=== PATIENT | male | born 1960 | race Two or more races ===

== ENCOUNTER 2024-04-05 01:11 | Emergency (ER) | payer BC, SELFPAY ==
[2024-04-05 01:12] VITALS: BMI 29.0
--- NOTE | 2024-04-05 01:16 | PD.EDCHEST ---
ED Chest Pain RME/HPI General Chief Complaint: Chest Pain Stated Complaint: CHEST TIGHTNESS; SOB SINCE 11PM Time Seen by Provider: 04/05/24 01:15 Arrival date/time: 04/05/24 01:11 RME / HPI RME / HPI narrative: This section includes all my notes and documentations, including HPI, PE, and ED course. Sonu Vallejo MD HPI: 63-year-old male here with upper abdominal pain radiating into the chest. Started yesterday but severe in the past few hours. He describes burning pain. Has nausea, no vomiting. No fever or chills. Does not take any regular medications. Drinks beers almost daily. No other complaints. ROS: All negative except as documented in HPI. Physical Exam: General: Alert and oriented. Appears uncomfortable. Eyes: Conjunctivae and lids clear. ENT: No nasal congestion. Neck: Supple. Heart: RRR. Lungs: No respiratory distress. Good air movement. No rhonchi, wheezing, rales. Abdomen: Soft with epigastric tenderness. Skin: Warm and dry. Neuro: Alert and oriented X 3. I reviewed all diagnostic test results. My interpretation of the EKG is sinus rhythm with no acute ST?T changes. My interpretation of the chest x-ray is no acute findings, official radiology report is pending. My review of the chest CT report is no PE. My review of the abdominal CT report is no acute findings. Blood tests unremarkable, including negative troponin. At this point, diagnoses include gastritis. Treatment here included Zofran and famotidine and Protonix. Significant improvement noted. Prescribed famotidine and Protonix and recommended more outpatient cardiac and GI workup. Based on my best medical judgment, made decision no further evaluation or treatment indicated at this time. Patient understands and agrees to the discharge instructions customized and printed, see below. Discharge instructions from Dr. Vallejo: ?After extensive evaluation, there is no immediately life-threatening condition. Such as heart attack or pulmonary embolism (blood clots in the lungs). --Your symptoms are due to stomach ulcer (see attached handout). There is no emergency such as appendicitis needing emergent surgery. ?To help heal the ulcer, take Omeprazole 40 mg every morning and Famotidine 40 mg at bedtime for a month. ?Zofran for nausea/vomiting. Clear liquid diet for 24 hours. Then slowly advance diet as tolerated. ?Avoid food and beverages that can trigger and worsen ulcers, such as alcohol. See attached handout. -Senokot S and MOM for constipation. ?See a private doctor on 04/06/2024. Ask to review all test results and official radiology reports, to make sure you receive all necessary follow-ups and monitoring. To make sure there is no serious underlying abdominal condition, ask to help you get more care not available here in the ER. Such as EGD or scoping the stomach, colonoscopy or scoping the colon, and a referral to see a application technical designer. To make sure there is no serious underlying heart condition, ask to help you get more tests for your heart that cannot be done here in the ER. Such as Holter Monitor (cardiac monitoring at home from a day to even a month), heart stress test (on treadmill or with medication), echocardiogram (imaging of your heart structures), heart catherization (checking for blockages in your heart arteries), and a referral to see a Poultry Husbandry Worker. ?Seek immediate medical care with worsening or with any concerns. Sonu Vallejo MD Related Data Home Medications ?Medication ?Instructions ?Recorded ?Confirmed montelukast 10 mg tablet 10 mg PO QDAY 03/22/20 03/22/20 omeprazole 40 mg capsule,delayed 40 mg PO QDAY 03/22/20 03/22/20 release pseudoephedrine HCl 60 mg tablet 60 mg PO Q6H PRN Allergic Reaction 03/22/20 03/22/20 (Sudogest) Previous Rx's ?Medication ?Instructions ?Recorded cephalexin 500 mg capsule (Keflex) 500 mg PO BID #14 caps 03/23/20 hydrocodone 5 mg-acetaminophen 325 1 tab PO Q4H PRN pain #30 tabs 03/23/20 mg tablet famotidine 40 mg tablet 40 mg PO QDAY #30 tabs 04/05/24 magnesium hydroxide 2,400 mg/10 mL 30 ml PO QDAY PRN constipation #60 04/05/24 oral suspension (Milk Of Magnesia mL Concentrated) omeprazole 40 mg capsule,delayed 40 mg PO QDAY #30 caps 04/05/24 release ondansetron 4 mg disintegrating 4 mg PO TID PRN nausea and 04/05/24 tablet vomiting 5 days #10 tabs sennosides 8.6 mg-docusate sodium 4 tab-cap (4 x 8.6-50 mg) PO 04/05/24 50 mg tablet (Senokot-S) .bedtime PRN constipation #20 tabs Allergies Allergy/AdvReac Type Severity Reaction Status Date / Time No Known Allergies Allergy Verified 04/05/24 01:16 Review of Systems Review of Systems Systems Reviewed: All systems reviewed, normal except as documented Past Medical History Past Medical History NEUROLOGIC: Negative Neurological Disorders or Seizures CARDIAC: Negative Cardiac Disorders, Congestive Heart Failure, Edema, Cellulitis or Varicose Veins RESPIRATORY: Negative Chronic Obstructive Pulmonary Disease (COPD), Pneumonia, Tuberculosis or Sleep Apnea GASTROINTESTINAL: Negative Gastrointestinal Disorders or Hepatitis GENITOURINARY: Negative Genitourinary Disorders or Renal Disease MUSCULOSKELETAL: Positive Musculoskeletal Disorders, Arthritis and Fractures (LEFT ANKLE HAS METAL) ENT: Positive Cataracts (THALIA) ENDOCRINE: Negative Endocrine Disorders, Diabetes Mellitus Type 1 or Diabetes Mellitus Type 2 HEMATOLOGIC: Negative Blood Disorders OTHER HISTORY: Negative Hospitalization, Autoimmune Disease, Shingles, Falls, Blood Transfusions, Blood Transfusion Reaction, Anesthesia Reactions, Chemotherapy, Radiation Therapy, MRSA, Chicken Pox, Measles, Mumps or Cancer Family History FAMILY HISTORY: Positive Family Gastrointestinal Problems (FATHER (ABD)), Family Cancer (FATHER (ABD CA)) and Family Surgery (FATHER,MOTHER); Negative Family Psychiatric Problems, Family Respiratory Disorders, Family Cardiac Disorders or Family Anesthesia Reaction Surgical History SURGICAL: Positive Nose Surgery (SEPTOPLASTY/TRUBINECTOMY), Tonsillectomy and Open Reduction Internal Fixation (LEFT ANKLE-PLATES/SCREWS); Negative Cardiac Surgery or Pacemaker Social History SMOKING STATUS: Current some day smoker SUBSTANCE USE: does not use ED Exam Narrative Physical exam: As noted in HPI. Course Course Course Narrative: CXR is ordered for determining the etiology of chest pain. Quality Measures none Orders Category Date Time Status CT Screening NOW Care 04/05/24 01:37 Active EKG (ED ONLY) *Do not use* NOW Care 04/05/24 01:37 Completed Saline [Insert IV] NOW Care 04/05/24 01:[address] abdomen pelvis w con Stat Exams 04/05/24 01:[address] angio chest Stat Exams 04/05/24 01:38 Taken EKG (ED Only) Stat Exams 04/05/24 01:37 Ordered XR chest 1V portable Stat Exams 04/05/24 01:37 Taken Amylase Stat Lab 04/05/24 02:10 Completed BNP [B-Type Natriuretic Peptide] Stat Lab 04/05/24 02:10 Completed CBC Stat Lab 04/05/24 02:10 Completed CMP [Comprehensive Metabolic Panel] Stat Lab 04/05/24 02:10 Completed D-Dimer Stat Lab 04/05/24 02:10 Completed Lipase Stat Lab 04/05/24 02:10 Completed Magnesium Stat Lab 04/05/24 02:10 Completed Troponin I Stat Lab 04/05/24 02:10 Completed Famotidine Inj [Pepcid Inj] Med 04/05/24 01:37 Discontinued 20 mg IVP X1 ONE Ondansetron Inj [Zofran Inj] Med 04/05/24 01:37 Discontinued 4 mg IV X1 ONE Pantoprazole Inj [Protonix Inj] Med 04/05/24 01:37 Discontinued 40 mg IV X1 ONE Vital Signs Vital signs: Vital Signs Temperature 98.1 F 04/05/24 01:39 Pulse Rate 64 04/05/24 01:39 Respiratory Rate 24 H 04/05/24 01:39 Blood Pressure 155/76 H 04/05/24 01:39 Pulse Oximetry (%) 96 04/05/24 01:39 Oxygen Delivery Method Room Air 04/05/24 01:39 Chest Pain Patient data External records reviewed:: [facility] previous records (Per chart review, patient was seen here on 08/30/22 for near syncope.) Clinical information provided by:: patient Social determinants that could affect healthcare access:: none Patient has the following chronic illnesses:: none How is presenting disease/condition affected by chronic disease/condition?: no chronic disease Evaluation data The following diagnostics were reviewed and interpreted by me:: lab results, radiology exam(s) and EKG tracing(s) (My interpretation of the EKG is: Sinus rhythm (64 bpm) with nonspecific ST-T changes. Sonu Vallejo MD) Lab and/or radiology exams considered but not ordered:: none Interpretation Summary: Gastritis Medications / Prescriptions Medications or Prescriptions considered but not ordered:: none Medication administrations:: Medication Administration History Discontinued Medications Famotidine (Famotidine Inj 10 Mg/Ml Vial 2 Ml) 20 mg IVP X1 ONE Stop: 04/05/24 01:38 Last Admin: 04/05/24 02:10 Dose: 20 mg Documented By: VIRAL Ondansetron HCl (Ondansetron Inj 2 Mg/Ml Inj 2 Ml) 4 mg IV X1 ONE; Protocol Stop: 04/05/24 01:38 Last Admin: 04/05/24 02:10 Dose: 4 mg Documented By: VIRAL Pantoprazole Sodium (Pantoprazole Inj 40 Mg Vial) 40 mg IV X1 ONE Stop: 04/05/24 01:38 Last Admin: 04/05/24 02:10 Dose: 40 mg Documented By: VIRAL Zofran and famotidine and Protonix Consultations Consultation(s) initiated? (list below): No Diagnosis Chest Pain Differential Diagnosis: pneumothorax, stable angina, unstable angina pectoris, atypical chest pain, st elevation myocardial infarction, costochondritis, biliary colic and other (PE, SBO, PUD, gastritis, GERD) Most likely diagnosis given after review of the tests above:: Gastritis Admission Indicated Admission indicated?: not indicated Explain why admission is indicated or not indicated:: Admission criteria not Admission Request Was there a request for admission?: No Disposition Plan Disposition Plan: Discharge Discharge Attestation Discharge Attestation: The patient and all family members were given an opportunity to ask questions and understood the discharge instructions. Discharge instructions specifically effects, indications for sooner follow up or return to the emergency department, and the expected course of current diagnosis. Patient condition: Stable Discharge Plan Plan Patient Disposition: HOME (Self Care) Prescriptions/Referrals Prescriptions/Med Rec: New famotidine 40 mg tablet 40 mg PO QDAY Qty: 30 0RF omeprazole 40 mg capsule,delayed release(DR/EC) 40 mg PO QDAY Qty: 30 0RF ondansetron 4 mg tablet,disintegrating 4 mg PO TID PRN (Reason: nausea and vomiting) 5 Days Qty: 10 0RF sennosides-docusate sodium [Senokot-S] 8.6-50 mg tablet 4 tab-cap PO .bedtime PRN (Reason: constipation) Qty: 20 0RF magnesium hydroxide [Milk Of Magnesia Concentrated] 2,400 mg/10 mL suspension 30 ml PO QDAY PRN (Reason: constipation) Qty: 60 0RF No Action omeprazole 40 mg Capsule,Delayed Release(Dr/Ec) 40 mg PO QDAY montelukast 10 mg Tablet 10 mg PO QDAY pseudoephedrine HCl [Sudogest] 60 mg Tablet 60 mg PO Q6H PRN (Reason: Allergic Reaction) cephalexin [Keflex] 500 mg capsule 500 mg PO BID Qty: 14 0RF hydrocodone-acetaminophen 5-325 mg tablet 1 tab PO Q4H MDD 6 PRN (Reason: pain) Qty: 30 0RF Referrals: Kingston Salvador MD [Primary Care Provider] - In 1 week Problem List Clinical Impression: Stomach ulcer Patient/Caregiver Discharge Instructions Discharge Activity: activity as tolerated Education Materials: ED Constipation (Adult), ED PEPTIC ULCER vs GASTRITIS Additional Instructions: Discharge instructions from Dr. Vallejo: ?After extensive evaluation, there is no immediately life-threatening condition. Such as heart attack or pulmonary embolism (blood clots in the lungs). --Your symptoms are due to stomach ulcer (see attached handout).? There is no emergency such as appendicitis needing emergent surgery. ?To help heal the ulcer, take Omeprazole 40 mg every morning and Famotidine 40 mg at bedtime for a month. ?Zofran for nausea/vomiting.? Clear liquid diet for 24 hours.? Then slowly advance diet as tolerated. ?Avoid food and beverages that can trigger and worsen ulcers, such as alcohol.? See attached handout. --Senokot S and milk of magnesia as needed for constipation. ?See a private doctor on 04/06/2024. Ask to review all test results and official radiology reports, to make sure you receive all necessary follow-ups and monitoring. To make sure there is no serious underlying abdominal condition, ask to help you get more care not available here in the ER.? Such as EGD or scoping the stomach, colonoscopy or scoping the colon, and a referral to see a application technical designer. To make sure there is no serious underlying heart condition, ask to help you get more tests for your heart that cannot be done here in the ER. Such as Holter Monitor (cardiac monitoring at home from a day to even a month), heart stress test (on treadmill or with medication), echocardiogram (imaging of your heart structures), heart catherization (checking for blockages in your heart arteries), and a referral to see a Poultry Husbandry Worker. ?Seek immediate medical care with worsening or with any concerns. Print Language: Kazakh Stand Alone Forms: [employer]addy Award Info., Patient Portal Info Letter
--- NOTE | 2024-04-05 01:37 | XR_ITS ---
Examination: CT abdomen with intravenous contrast CT pelvis with intravenous contrast 2-D coronal reconstructions 2-D sagittal reconstructions Date and time of exam:April 05, 2024 0304 hrs. Indications: Onset abdominal pain today. CTDI: vol (mGy) 8.90 DLP: (mGycm) 557 Technique: Multiple axial sections of the abdomen and pelvis have been obtained. 64 slice high-resolution scanner used. 3 mm axial sections have been obtained, post intravenous injection Isovue 370 60 cc 2-D sagittal, coronal reconstructions obtained. Low dose protocols were performed. One or more of the following dose reduction techniques were used; automated exposure control, adjustment of the mA and/or KV according to patient size, use of iterative reconstruction technique. Findings: 3 mm left lower lobe pulmonary nodule image 26 Multiple low-density liver lesions measuring up to 15 mm with significant fatty infiltration throughout the liver No gallstones Spleen not enlarged No pancreatic or adrenal mass Small parapelvic cysts Abdominal aortic calcification no aneurysmal dilatation Normal appendix No bowel obstruction Normal seminal vesicles Urinary bladder wall mild thickening Transverse prostate dimension 4 cm Fat-containing left inguinal hernia Impression: Multiple low-density liver lesions measuring up to 15 mm with significant fatty infiltration throughout the liver, consider MRI abdomen liver follow-up for characterization of these liver lesions Normal appendix No bowel obstruction Moderate prostatomegaly with thickening of the urinary bladder wall, differential would include cystitis, early urinary outflow tract obstruction secondary to prostatomegaly
--- NOTE | 2024-04-05 01:37 | XR_ITS ---
Examination: PA chest single view Technique: Upright PA chest single view Exam date and time: April 05, 2024 0146 hrs. Indications: Shortness of breath today. Findings: Normal heart size Lungs are clear. The osseous structures are intact Impression: No active disease
--- NOTE | 2024-04-05 01:38 | XR_ITS ---
Examination: CTA chest with intravenous contrast 2-D reconstructions 3-D reconstructions, vascular Date and time of exam: April 05, 2024 0304 hrs. Indications: Chest pain chest tightness shortness of breath beginning 4 hours ago CTDI: vol (mGy) 18.88 DLP: (mGycm) 490 Technique: Multiple axial sections of the thorax have been obtained. 3 mm slice thickness, from below the hemidiaphragms to above the apices of the lungs. Mediastinal and lung density settings have been obtained. 2-D sagittal and coronal reconstructions. 3-D angiographic renderings, 3-D volume renderings, 3D post processing, vascular maximum intensity projections obtained. Contrast administered is 100 cc Isovue-370 intravenous. Low dose protocols were performed. One or more of the following dose reduction techniques were used; automated exposure control, adjustment of the mA and/or KV according to patient size, use of iterative reconstruction technique. Findings: No thoracic aortic aneurysm dilatation or dissection Negative for pulmonary artery emboli No paratracheal tracheobronchial or bronchopulmonary adenopathy No pneumonia or pulmonary edema or pleural disease Diffuse fatty infiltration throughout the liver Mild diffuse thoracic degenerative disc disease Impression: Negative for pulmonary artery emboli No pneumonia, pulmonary edema or pleural disease
[2024-04-05 01:39] VITALS: BP 155/76; PULSE 64; RESP 24; TEMP 36.7; O2SAT 96
[2024-04-05] MEDS: ONDANSETRON INJ 2 MG/ML INJ 2 ML 4 MG IV (02:10)
[2024-04-05] MEDS: PANTOPRAZOLE INJ 40 MG VIAL IV (02:10)
[2024-04-05] MEDS: FAMOTIDINE INJ 10 MG/ML VIAL 2 ML 20 MG IVP (02:10)
[2024-04-05 02:17] LABS: Basophils # (Auto) 0.1 Thou/mm3 (0.0-0.2); Basophils % (Auto) 1 % (0-2.5); Eosinophils # (Auto) 0.6 Thou/mm3 (0.0-0.5); Eosinophils % (Auto) 9 % (0-10); Hematocrit 45.3 % (41.0-53.0); Hemoglobin 15.7 g/dL (13.5-16.0); Immature Granulocytes % (Auto) 0 % (0-0); Immature Granulocytes Auto 0.01 Thou/mm3 (0.00-0.00); Lymphocytes # (Auto) 1.5 Thou/mm3 (1.0-4.8); Lymphocytes % (Auto) 24 % (10-50); Mean Corpuscular HGB Conc 34.7 g/dl (31.0-37.0); Mean Corpuscular Hemoglobin 32.3 pg (25.0-35.0); Mean Corpuscular Volume 93 fL (80-100); Monocytes # (Auto) 0.6 Thou/mm3 (0.0-0.8); Monocytes % (Auto) 10 % (0-12); Neutrophils # (Auto) 3.3 Thou/mm3 (1.8-7.7); Neutrophils % (Auto) 55 % (37-80); Nucleated Red Blood Cell % 0 /100 WBC (0); Platelet Count 153 Thou/mm3 (140-440); RDW Standard Deviation 43.8 fL (35.1-43.9); Red Blood Count 4.86 Miln/mm3 (4.50-5.90)
[2024-04-05 02:37] LABS: Alanine Aminotransferase 64 U/L (10-49); Albumin, Serum 4.7 gm/dL (3.4-4.8); Albumin/Globulin Ratio 1.8 (1.2-2.2); Alkaline Phosphatase 76 U/L (46-116); Anion Gap 11 (7-16); Aspartate Amino Transferase 54 U/L (0-34); BUN/Creatinine Ratio 11 Ratio (12-20); Bilirubin,Total 0.8 mg/dL (0.3-1.2); Blood Urea Nitrogen 8 mg/dL (9-23); Carbon Dioxide 25.4 mMol/L (20.0-31.0); Chloride 103 mMol/L (98-107); Creatinine (Component) 0.7 mg/dL (0.6-1.3); Estimated Creatinine Clearance 108.4 mL/min (>60); Globulin 2.6 gm/dL (2.3-3.5); Glucose 96 mg/dL (74-106); Lipase 51 U/L (12-53); Magnesium 2.1 mg/dL (1.6-2.6); Osmolality,Calculated 275 (275-295); Potassium 3.5 mMol/L (3.4-5.1); Sodium 139 mMol/L (136-145); Total Protein 7.3 gm/dL (5.7-8.2); eGFR > 60 See Note
[2024-04-05 02:38] LABS: B-Type Natriuretic Peptide < 20 pg/mL (0-100)
[2024-04-05 02:41] LABS: D-Dimer 294 ng/mL (<600)
[2024-04-05 02:52] LABS: Amylase 64 U/L (30-118); Troponin I < 0.020 ng/mL (0.0-0.045)
--- NOTE | 2024-04-05 03:58 | PRELIM_ITS ---
CT angiogram of the chest with intravenous contrast (axial sections with sagittal and coronal reforma ts). April 05, 2024 at 0304 hoursClinical History: Shortness of breath and chest pain. Technique:H elical axial sections with sagittal and coronal reformats of the chest were obtained with intravenous contrast. Iterative reconstruction technique was employed to reduce patient radiation exposure. 3D/M IP reconstructed images were also provided. Comparison: No prior study is available for comparison.Fi ndings:There is no filling defect within the pulmonary artery divisions to suggest pulmonary thromboe mbolism. The mediastinum demonstrates no evidence of mass or lymphadenopathy. The thoracic aorta is u nremarkable. There is no pericardial effusion. The lungs are clear. No evidence of pleural effusion o r pneumothorax.The osseous structures are unremarkable.Liver steatosis.Coronary arteries calcificatio ns.Impression:1. No CT evidence of pulmonary thromboembolism.2. Liver steatosis.3. Coronary arteries calcifications. If acute myocardial infarction is clinically suspected consider correlation with trop onin. Report Electronically Signed By: Mustapha Aparicio 04/05/2024 3:57:53 AM [EST]
--- NOTE | 2024-04-05 04:14 | PRELIM_ITS ---
CT scan of the abdomen and pelvis with intravenous contrast (axial sections with sagittal and coronal reformats) April 05, 2024 0304 hoursClinical History: Abdominal painComparison: None.Findings:The lung bases are clear.The gallbladder, pancreas, spleen, kidneys and adrenals are unremarkable.Hepato megaly. Liver steatosis. A few hypodense liver lesions, the largest in the segment 2 measures 1.5 cm. No evidence of bowel obstruction. No evidence of appendicitis.There is no mesenteric or retroperitone al adenopathy.Urinary bladder wall thickening.Enlarged prostate.There is no free fluid or free air.Th e osseous structures are unremarkable.Fecal loading.Impression:Hepatomegaly associated with liver alan atosis is suspicious for steatohepatitis.Indeterminate hypodense liver lesions, consider correlation with MRI for characterization.Urinary bladder wall thickening, possibly due to cystitis or possibly d ue to chronic urinary retention.Enlarged prostate. Consider correlation with PSA.Fecal loading. Repor t Electronically Signed By: Mustapha Aparicio 04/05/2024 4:13:30 AM [EST]
[2024-04-05 05:11] VITALS: BP 149/89; PULSE 68; RESP 18; O2SAT 96
== END 2024-04-05 05:12 | disposition home or self-care (01) ==
PROVIDERS: Emergency Provider Emergency Medicine; PCP Family Medicine
DX: K25.9 Gastric ulcer, unspecified as acute or chronic, without hemorrhage or perforation (principal)
CPT/HCPCS: 36415; 71045; 71275; 74177; 80053; 82150; 83690; 83735; 83880; 84484; 85025; 85379; 93005; 96374; 96375; 99285; A4649; J2405; J2470; J3490; Q9967

== ENCOUNTER → 2024-04-15 | Outpatient (CLI) | payer BC, SELFPAY ==
--- NOTE | 2024-04-15 14:38 | XR_ITS ---
Examination: Lumbar spine, 5 views Technique: Lumbar spine AP, lateral, coned lateral lower lumbar spine, bilateral obliques 5 views Exam date and time: April 15, 2024 1449 hours INDICATIONS: Low back pain radiating down the legs months FINDINGS: Lumbar dextroscoliosis 10 degrees Moderate to advanced diffuse facet arthropathy No lumbar fracture Diffuse lumbar disc narrowing mild to moderate most prominent L3-L4, L4-L5, L5-S1 Moderate lumbar spondylosis No spondylolisthesis IMPRESSION: Diffuse [id number] lumbar degenerative disc disease, most severe lower 3 lumbar levels with spinal stenosis
== END | disposition home or self-care (01) ==
PROVIDERS: PCP Family Medicine; Referring Provider Family Medicine; Visit Provider Family Medicine
DX: M51.369 Other intervertebral disc degeneration, lumbar region without mention of lumbar back pain or lower extremity pain (principal); M48.061 Spinal stenosis, lumbar region without neurogenic claudication
CPT/HCPCS: 72110

== ENCOUNTER → 2024-04-19 | Outpatient (CLI) | payer BC, SELFPAY ==
[2024-04-19 18:23] LABS: Amphetamine/Methamp Scrn,U Negative (Negative); Barbiturate Screen,Urine Negative (Negative); Benzodiazepines Screen,Urine Negative (Negative); Benzoylecgonine Screen, Ur Negative (Negative); Fentanyl Screen,Urine Negative (Negative); Opiate Screen,Urine Positive (Negative); THC Screen,Urine Negative (Negative)
== END | disposition home or self-care (01) ==
LOC: SLDO 12:37
PROVIDERS: PCP Family Medicine; Referring Provider Family Medicine; Visit Provider Family Medicine
DX: M54.2 Cervicalgia (principal); Z71.51 Drug abuse counseling and surveillance of drug abuser
CPT/HCPCS: 80307

== ENCOUNTER → 2024-05-13 | Outpatient (CLI) | payer BC, SELFPAY ==
[2024-05-13 14:19] LABS: Urea Breath Test Negative (Negative)
== END | disposition home or self-care (01) ==
LOC: COPL 11:25
PROVIDERS: PCP Family Medicine; Referring Provider Specialist; Visit Provider Specialist
DX: R10.10 Upper abdominal pain, unspecified (principal)
CPT/HCPCS: 83013; 83014

== ENCOUNTER 2024-07-12 14:19 | Emergency (ER) | payer BC, SELFPAY ==
[2024-07-12 14:21] VITALS: PULSE 98; RESP 20; O2SAT 99; BMI 29.0
[2024-07-12 14:24] VITALS: BP 140/93; PULSE 99; RESP 18; TEMP 36.6; O2SAT 96; BMI 28.8
--- NOTE | 2024-07-12 14:29 | EKG_ITS ---
[facility] Test Date: 2024-07-12 Pat Name: SUSANNA MANZANARES Department: Room: - Gender: Male Publicity Consultant: : [id number] Requested By: Ronald Long Order Number: [id number] Reading MD: Ronald Long Measurements Intervals [place] Rate: 78 P: 42 PA: 154 QRS: -31 QRSD: 93 T: 70 QT: 388 QTc: 443 Interpretive Statements SINUS RHYTHM LEFT AXIS DEVIATION [QRS AXIS < -30] Compared to ECG 08/30/2022 15:40:43 Incomplete right bundle-branch block no longer present /store/S0/[id number]/ecg/[id number].pdf
--- NOTE | 2024-07-12 14:30 | EDNOTE_ITS ---
<Statement entered by Francia Herrera MD - 07/12/24 17:55> As co-signing physician, I was present and available for consult prn. I concur with the plan and care as documented by the midlevel provider. ED General RME/HPI General Chief complaint: Abdominal Pain Stated complaint: ABD ISSUES Time Seen by Provider: 07/12/24 14:29 Arrival date/time: 07/12/24 14:19 CC: Dizziness from lack of belching HPI patient presents the ER via EMS who report the patient being very anxious stable vital signs patient states because he could not belch he was worried that the area would go to his head , but he was able to belch and now the dizziness has resolved. Patient is very anxious, stating he has numbness in his hands and his lower extremities. Denies chest pain shortness of breath or difficulty breathing. Related Data Home Medications ?Medication ?Instructions ?Recorded ?Confirmed sucralfate 1 gram tablet (Carafate) 1 g PO TID 5 07/12/24 Previous Rx's ?Medication ?Instructions ?Recorded famotidine 40 mg tablet 40 mg PO QDAY #30 tabs 04/05 sennosides 8.6 mg-docusate sodium 4 tab-cap (4 x 8.6-5 0 mg) PO 04/05/24 50 mg tablet (Senokot-S) .bedtime PRN constipation #2 0 tabs Allergies Allergy/AdvReac Type Severity Reaction Status Date / Time No Known Allergies Allergy Verified 07/12/24 14:47 Review of Systems Review of Systems Narrative Review of Systems: GEN: No fever, no chills, no weight loss EYES: No discharge, no visual changes, no pain HEENT: No ear pain, no congestion, no sore throat PULM: No shortness of breath, no cough, no congestion CV: No chest pain, no dyspnea on exertion, no palpitations GI: No nausea, no vomiting, no diarrhea, no pain, no constipation : No frequency, no urgency, no dysuria MUSC/SKEL: No joint pain, no back pain SKIN: No rash PSYCH: No hallucinations, no depression HEME/LYMPH: No easy bleeding or bruising tendencies NEURO: No weakness, no headache Past Medical History Past Medical History NEUROLOGIC: Negative Neurological Disorders or Seizures CARDIAC: Negative Cardiac Disorders, Congestive Heart Failure, Edema, Cellulitis or Varicose Veins RESPIRATORY: Negative Chronic Obstructive Pulmonary Disease (COPD), Asthma, Pneumonia, Tuberculosis or Sleep Apnea GASTROINTESTINAL: Negative Gastrointestinal Disorders or Hepatitis GENITOURINARY: Negative Genitourinary Disorders or Renal Disease MUSCULOSKELETAL: Positive Musculoskeletal Disorders, Arthritis and Fractures ENT: Positive Cataracts ENDOCRINE: Negative Endocrine Disorders, Diabetes Mellitus Type 1 or Diabetes Mellitus Type 2 HEMATOLOGIC: Negative Blood Disorders or Sickle Cell Disease OTHER HISTORY: Negative Hospitalization, Autoimmune Disease, Shingles, Falls, Blood Transfusions, Blood Transfusion Reaction, Anesthesia Reactions, Chemotherapy, Radiation Therapy, MRSA, Chicken Pox, Measles, Mumps or Cancer Family History FAMILY HISTORY: Positive Family Gastrointestinal Problems, Family Cancer and Family Surgery; Negative Family Psychiatric Problems, Family Respiratory Disorders, Family Cardiac Disorders or Family Anesthesia Reaction Surgical History SURGICAL: Positive Nose Surgery, Tonsillectomy and Open Reduction Internal Fixation; Negative Cardiac Surgery or Pacemaker Social History SMOKING STATUS: Current some day smoker SUBSTANCE USE: does not use ED Exam Narrative Physical exam: [General: Very anxious but not in any acute distress Head normocephalic HEENT: Within acceptable limits Neck is supple nontender Chest equal chest rise nontender to palpation Respiratory: Clear to auscultation no wheezes crackles or rubs CV: Rate rhythm is regular no murmurs rubs or clicks Abdomen is soft nontender no masses positive bowel sounds all 4 quadrants Back: No CVA tenderness no spinous process tenderness from cervical spine thoracic and lumbar spine Skin: Intact no petechiae rash induration ulceration or crepitus Extremities: Moving all extremity against resistance cap refill less than 2 seconds neurosensory intact Neuro: Awake alert oriented x3 Glascow coma 15 no focal deficits] Course Quality Measures none Orders Category Date Time Status EKG (ED ONLY) *Do not use* NOW Care 07/12/24 14:30 Completed EKG (ED Only) Stat Exams 07/12/24 14:29 Draft CBC Stat Lab 07/12/24 14:55 Completed CMP [Comprehensive Metabolic Panel] Stat Lab 07/12/24 14:55 Completed Vital Signs Vital signs: Vital Signs Temperature 97.8 F 07/12/24 14:24 Pulse Rate 99 07/12/24 14:24 Respiratory Rate 18 07/12/24 14:24 Blood Pressure 140/93 H 07/12/24 14:24 Pulse Oximetry (%) 96 07/12/24 14:24 Oxygen Delivery Method Room Air 07/12/24 14:24 [facility] Patient data External records reviewed:: [facility] previous records and EMS form Clinical information provided by:: patient and EMS Social determinants that could affect healthcare access:: none Patient has the following chronic illnesses:: Acid reflux How is presenting disease/condition affected by chronic disease/condition?: u neffected by Evaluation data The following diagnostics were reviewed and interpreted by me:: lab results and EKG tracing(s) Lab and/or radiology exams considered but not ordered:: EKG performed at 1500 shows a ventricular rate of 78 [place] interval 154 QRS of 9 3 QTc of 421 this is sinus rhythm left axis deviation. CBC shows no acute leukocytosis anemia thrombocytopenia CMP shows no acute electrolyte imbalances renal impairment transaminitis or T. bili elevation. Interpretation Summary: I suspect the patient was bearing down hard to make himself belch on the ride home from his office visit, and experienced dizziness at which time he pulled over to the side and panic that is when he called 911. Throughout his visit in the emergency room the patient has been stable with no other acute finding. Patient will be discharged home Medications Medications considered but not ordered:: None Medication administrations:: None Consultations Consultation(s) initiated? (list below): No Diagnosis Differential Diagnosis ED Complaint MDM: Acid reflux anxiety vertigo Most likely diagnosis given after review of the tests above:: Acid reflux Admission Indicated Admission indicated?: not indicated Explain why admission is indicated or not indicated:: None Admission Request Was there a request for admission?: No Disposition Plan Disposition Plan: Discharge Discharge Attestation Discharge Attestation: The patient and all family members were given an opportunity to ask questions and understood the discharge instructions. Discharge instructions specifically effects, indications for sooner follow up or return to the emergency department, and the expected course of current diagnosis. Patient condition: Stable Medical Decision Making Differential Diagnosis Differential Diagnosis: Acid reflux anxiety vertigo Lab Data 07/12/24 14:55 07/12/24 14:55 Labs: Lab Results 07/12/24 Range/Units 14:55 WBC 5.8 (3.8-10.6) Thou/mm3 RBC 5.11 (4.50-5.90) Miln/mm3 Hgb 16.4 H (13.5-16.0) g/dL Hct 47.1 (41.0-53.0) % MCV 92 (80-100) fL MCH 32.1 (25.0-35.0) pg MCHC 34.8 (31.0-37.0) g/dl RDW Std Deviation 42.8 (35.1-43.9) fL Plt Count 170 (140-440) Thou/mm3 Neut % (Auto) 44 (37-80) % Lymph % (Auto) 36 (10-50) % Wilson % (Auto) 8 (0-12) % Eos % (Auto) 10 (0-10) % Baso % (Auto) 1 (0-2.5) % Neut # (Auto) 2.5 (1.8-7.7) Thou/mm3 Lymph # (Auto) 2.1 (1.0-4.8) Thou/mm3 Wilson # (Auto) 0.5 (0.0-0.8) Thou/mm3 Eos # (Auto) 0.6 H (0.0-0.5) Thou/mm3 Baso # (Auto) 0.1 (0.0-0.2) Thou/mm3 Immature Gran # (Auto) 0.01 H (0.00-0.00) Thou/mm3 Absolute Nucleated RBC 0.00 (0.00-0.00) Thou/mm3 Immature Gran % 0 (0-0) % Nucleated RBC % 0 (0) /100 WBC Sodium 141 (136-145) mMol/L Potassium 3.6 (3.4-5.1) mMol/L Chloride 108 H (98-107) mMol/L Carbon Dioxide 20.1 (20.0-31.0) mMol/L Anion Gap 13 (7-16) BUN 7 L (9-23) mg/dL Creatinine 0.8 (0.6-1.3) mg/dL Estim Creat Clear Calc 94.6 (>60) mL/min eGFR > 60 (60 - ) See Note BUN/Creatinine Ratio 9 L (12-20) Ratio Glucose 86 (74-106) mg/dL Calculated Osmolality 278 (275-295) Calcium 9.4 (8.3-10.6) mg/dL Corrected Calcium 9.4 (8.5-10.1) mg/dL Total Bilirubin 0.8 (0.3-1.2) mg/dL AST 64 H (0-34) U/L ALT 57 H (10-49) U/L Alkaline Phosphatase 79 (46-116) U/L Total Protein 7.3 (5.7-8.2) gm/dL Albumin 4.6 (3.4-4.8) gm/dL Globulin 2.7 (2.3-3.5) gm/dL Albumin/Globulin Ratio 1.7 (1.2-2.2) Discharge Plan Plan Patient Disposition: HOME (Self Care) Patient condition on transfer: Stable Prescriptions/Referrals Prescriptions/Med Rec: No Action sucralfate [Carafate] 1 gram tablet 1 g PO TID famotidine 40 mg tablet 40 mg PO QDAY Qty: 30 0RF sennosides-docusate sodium [Senokot-S] 8.6-50 mg tablet 4 tab-cap PO .bedtime PRN (Reason: constipation) Qty: 20 0RF Problem List Clinical Impression: Acid reflux, Anxiety Patient/Caregiver Discharge Instructions Education Materials: ED GERD (Adult) Print Language: German Stand Alone Forms: Maddy Award Info., Work/School Release, Patient Portal Info Letter PA/CUSTOMER PROFESSIONAL Supervising Physician PA/CUSTOMER PROFESSIONAL Supervising Physician: Ronald Fischer ENP
--- NOTE | 2024-07-12 14:30 | PC.NURSE ---
Patient from ambulance bay and taken to rm 19 per fountain pen nibs inspector patient c/o abdominal pain, can't pass gas, belching with h/o GI problems. Per fountain pen nibs inspector, en route patient anxious trying to get up, currently patient anxious stating he can't stop belching since friday, patient states he saw Dr. Jones on 06/29/24 and he did a colonscopy and endoscopy and told him everything was fine, patient given sucralfate 1gm and famotidine 40mg given by Dr. Jones. Patient states he has been taking it daily, however, states no matter what he eats he can't stop belching, patient denies n/vomiting no abdominal pain at this time, chart up to be seen by er provider.
[2024-07-12 15:10] LABS: Basophils # (Auto) 0.1 Thou/mm3 (0.0-0.2); Basophils % (Auto) 1 % (0-2.5); Eosinophils # (Auto) 0.6 Thou/mm3 (0.0-0.5); Eosinophils % (Auto) 10 % (0-10); Hematocrit 47.1 % (41.0-53.0); Hemoglobin 16.4 g/dL (13.5-16.0); Immature Granulocytes % (Auto) 0 % (0-0); Immature Granulocytes Auto 0.01 Thou/mm3 (0.00-0.00); Lymphocytes # (Auto) 2.1 Thou/mm3 (1.0-4.8); Lymphocytes % (Auto) 36 % (10-50); Mean Corpuscular HGB Conc 34.8 g/dl (31.0-37.0); Mean Corpuscular Hemoglobin 32.1 pg (25.0-35.0); Mean Corpuscular Volume 92 fL (80-100); Monocytes # (Auto) 0.5 Thou/mm3 (0.0-0.8); Monocytes % (Auto) 8 % (0-12); Neutrophils # (Auto) 2.5 Thou/mm3 (1.8-7.7); Neutrophils % (Auto) 44 % (37-80); Nucleated Red Blood Cell % 0 /100 WBC (0); Platelet Count 170 Thou/mm3 (140-440); RDW Standard Deviation 42.8 fL (35.1-43.9); Red Blood Count 5.11 Miln/mm3 (4.50-5.90); White Blood Count 5.8 Thou/mm3 (3.8-10.6)
[2024-07-12 15:27] LABS: Alanine Aminotransferase 57 U/L (10-49); Albumin, Serum 4.6 gm/dL (3.4-4.8); Albumin/Globulin Ratio 1.7 (1.2-2.2); Alkaline Phosphatase 79 U/L (46-116); Anion Gap 13 (7-16); Aspartate Amino Transferase 64 U/L (0-34); BUN/Creatinine Ratio 9 Ratio (12-20); Bilirubin,Total 0.8 mg/dL (0.3-1.2); Blood Urea Nitrogen 7 mg/dL (9-23); Calcium 9.4 mg/dL (8.3-10.6); Calcium (Corrected) 9.4 mg/dL (8.5-10.1); Carbon Dioxide 20.1 mMol/L (20.0-31.0); Chloride 108 mMol/L (98-107); Creatinine (Component) 0.8 mg/dL (0.6-1.3); Estimated Creatinine Clearance 94.6 mL/min (>60); Globulin 2.7 gm/dL (2.3-3.5); Glucose 86 mg/dL (74-106); Osmolality,Calculated 278 (275-295); Potassium 3.6 mMol/L (3.4-5.1); Sodium 141 mMol/L (136-145); Total Protein 7.3 gm/dL (5.7-8.2); eGFR > 60 See Note
--- NOTE | 2024-07-12 15:36 | PC.NURSE ---
Patient insistent upon ivl to right f/a being taken out, stating it's poking me , ivl removed with cath intact, no redness or swelling noted, pressure dressing applied. Ronald made aware.
[2024-07-12 15:43] VITALS: BP 128/86; PULSE 78; RESP 16; TEMP 36.7; O2SAT 98
== END 2024-07-12 15:45 | disposition home or self-care (01) ==
PROVIDERS: Registered Nurse General Practice; Emergency Provider Emergency Medicine
DX: K21.9 Gastro-esophageal reflux disease without esophagitis (principal); F41.9 Anxiety disorder, unspecified; R94.31 Abnormal electrocardiogram [ECG] [EKG]
CPT/HCPCS: 36415; 80053; 85025; 93005; 99283

== ENCOUNTER → 2024-09-15 | Outpatient (CLI) | payer BC, SELFPAY ==
[2024-09-15 09:55] LABS: Collection Type, Urine Clean Catch; Squamous Epithelial Cell,Urine 0 /hpf (0-5)
[2024-09-15 10:20] LABS: Basophils # (Auto) 0.1 Thou/mm3 (0.0-0.2); Basophils % (Auto) 1 % (0-2.5); Eosinophils # (Auto) 0.4 Thou/mm3 (0.0-0.5); Eosinophils % (Auto) 7 % (0-10); Hematocrit 51.2 % (41.0-53.0); Hemoglobin 17.3 g/dL (13.5-16.0); Immature Granulocytes % (Auto) 0 % (0-0); Lymphocytes # (Auto) 1.4 Thou/mm3 (1.0-4.8); Lymphocytes % (Auto) 22 % (10-50); Mean Corpuscular HGB Conc 33.8 g/dl (31.0-37.0); Mean Corpuscular Hemoglobin 32.3 pg (25.0-35.0); Mean Corpuscular Volume 96 fL (80-100); Monocytes # (Auto) 0.5 Thou/mm3 (0.0-0.8); Monocytes % (Auto) 8 % (0-12); Neutrophils # (Auto) 3.9 Thou/mm3 (1.8-7.7); Neutrophils % (Auto) 62 % (37-80); Nucleated Red Blood Cell % 0 /100 WBC (0); Platelet Count 165 Thou/mm3 (140-440); RDW Standard Deviation 43.9 fL (35.1-43.9); Red Blood Count 5.35 Miln/mm3 (4.50-5.90); White Blood Count 6.4 Thou/mm3 (3.8-10.6)
[2024-09-15 10:30] LABS: Bacteria,Urine Rare; Bilirubin,Urine 1+ (Negative); Blood,Urine 1+ (Negative); Color,Urine Orange (Lt Yel-Yel); Glucose, Urine Trace (Negative); Ketones,Urine 1+ (Negative); Leukocyte Esterase,Urine Negative (Negative); Nitrite,Urine Negative (Negative); Protein,Urine 1+ (Neg - Trace); RBC,Urine 15 /hpf (0-3); Specific Gravity,Urine 1.033 (1.001-1.035); WBC,Urine 5 /hpf (0-5)
[2024-09-15 10:52] LABS: Alanine Aminotransferase 93 U/L (10-49); Albumin, Serum 4.9 gm/dL (3.4-4.8); Alkaline Phosphatase 83 U/L (46-116); Anion Gap 9 (7-16); Aspartate Amino Transferase 78 U/L (0-34); BUN/Creatinine Ratio 12 Ratio (12-20); Bilirubin,Total 1.3 mg/dL (0.3-1.2); Blood Urea Nitrogen 11 mg/dL (9-23); Calcium 10.2 mg/dL (8.3-10.6); Calcium (Corrected) 10.2 mg/dL (8.5-10.1); Carbon Dioxide 25.6 mMol/L (20.0-31.0); Chloride 102 mMol/L (98-107); Creatinine (Component) 0.9 mg/dL (0.6-1.3); Globulin 2.4 gm/dL (2.3-3.5); Glucose 94 mg/dL (74-106); Osmolality,Calculated 273 (275-295); Potassium 3.6 mMol/L (3.4-5.1); Sodium 137 mMol/L (136-145); Total Protein 7.3 gm/dL (5.7-8.2); eGFR > 60 See Note
[2024-09-15 10:54] LABS: Clarity,Urine Hazy (Clear/Hazy)
[2024-09-15 11:08] LABS: Amylase 66 U/L (30-118); Lipase 64 U/L (12-53)
== END | disposition home or self-care (01) ==
LOC: COPL 09:19
PROVIDERS: PCP Family Medicine; Referring Provider Specialist; Visit Provider Specialist
DX: R10.9 Unspecified abdominal pain (principal)
CPT/HCPCS: 36415; 80053; 81001; 82150; 83690; 85025

== ENCOUNTER → 2024-09-15 | Outpatient (CLI) | payer BC, SELFPAY ==
--- NOTE | 2024-09-15 11:49 | XR_ITS ---
Examination: Abdomen sonogram, Limited Date and time of exam: September 15, 2024 1152 hours INDICATIONS: Abdominal pain heartburn reflux 1 year, worse the last week Technique: Real-time escobar scale transabdominal sonographic images of the upper abdomen obtained. Findings: Normal gallbladder Normal common bile duct 0.3 cm Pancreatic head 2.5 cm Liver 12.8 cm fatty infiltration right lobe 16 mm liver cyst Normal hepatopedal portal venous flow Patent IVC Incidental note dilatation of a lower pole right renal calyx IMPRESSION: Normal gallbladder Fatty liver Incidental note dilatation of the lower pole right renal calyx, consider renal sonography follow-up
== END | disposition home or self-care (01) ==
PROVIDERS: PCP Family Medicine; Referring Provider Specialist; Visit Provider Specialist
DX: K76.0 Fatty (change of) liver, not elsewhere classified (principal)
CPT/HCPCS: 76705

== ENCOUNTER → 2024-11-18 | Outpatient (CLI) | payer BC, SELFPAY ==
--- NOTE | 2024-11-18 | XR_ITS ---
Examination: Ribs, bilateral, with PA chest, 7 views Technique: Chest PA, RIBS AP, RPO, LPO right and left hips,, AP coned lower ribs 5 Exam date and time: November 18, 2024 1226 hours INDICATIONS: Patient fell 4 days ago with injury to right and left chest and bilateral rib pain Findings: Normal heart size No pneumothorax Acute fracture right seventh rib in the mid axillary line without significant displacement IMPRESSION: No pneumothorax pulmonary contusion or hemothorax Acute fracture right seventh rib
== END | disposition home or self-care (01) ==
LOC: CDIM 11:36
PROVIDERS: PCP Internal Medicine; Referring Provider Student in an Organized Health Care Education/Training Program; Visit Provider Student in an Organized Health Care Education/Training Program
DX: S22.31XA Fracture of one rib, right side, initial encounter for closed fracture (principal); W19.XXXA Unspecified fall, initial encounter
CPT/HCPCS: 71111

== ENCOUNTER → 2024-12-27 | Outpatient (CLI) | payer BC, SELFPAY ==
[2024-12-27 09:16] LABS: Alanine Aminotransferase 67 U/L (10-49); Albumin, Serum 4.5 gm/dL (3.4-4.8); Albumin/Globulin Ratio 2.0 (1.2-2.2); Alkaline Phosphatase 85 U/L (46-116); Anion Gap 6 (7-16); Aspartate Amino Transferase 46 U/L (0-34); BUN/Creatinine Ratio 8 Ratio (12-20); Bilirubin,Total 1.3 mg/dL (0.3-1.2); Blood Urea Nitrogen 6 mg/dL (9-23); Calcium 9.9 mg/dL (8.3-10.6); Calcium (Corrected) 9.9 mg/dL (8.5-10.1); Carbon Dioxide 30.6 mMol/L (20.0-31.0); Cardiac Risk Estimate 1.8 RATIO (4.0-6.7); Chloride 105 mMol/L (98-107); Cholesterol 174 mg/dL (132-200); Creatinine (Component) 0.8 mg/dL (0.6-1.3); Globulin 2.3 gm/dL (2.3-3.5); Glucose 107 mg/dL (74-106); HDL Cholesterol 99 mg/dL (40-60); LDL Cholesterol,Calculated 62 mg/dL (0-130); Osmolality,Calculated 280 (275-295); Potassium 4.1 mMol/L (3.4-5.1); Sodium 142 mMol/L (136-145); Thyroid Stimulating Hormone 1.25 uIU/mL (0.55-4.78); Total Protein 6.8 gm/dL (5.7-8.2); Triglycerides 66 mg/dL (30-150); eGFR > 60 See Note
[2024-12-27 09:33] LABS: PSA Medicare Annual Scrn 3.15 ng/mL (0-4.00)
[2024-12-27 10:03] LABS: Basophils # (Auto) 0.1 Thou/mm3 (0.0-0.2); Basophils % (Auto) 1 % (0-2.5); Eosinophils # (Auto) 0.6 Thou/mm3 (0.0-0.5); Eosinophils % (Auto) 10 % (0-10); Hematocrit 50.0 % (41.0-53.0); Hemoglobin 16.9 g/dL (13.5-16.0); Immature Granulocytes Auto 0.02 Thou/mm3 (0.00-0.00); Lymphocytes # (Auto) 1.5 Thou/mm3 (1.0-4.8); Lymphocytes % (Auto) 24 % (10-50); Mean Corpuscular HGB Conc 33.8 g/dl (31.0-37.0); Mean Corpuscular Hemoglobin 32.8 pg (25.0-35.0); Mean Corpuscular Volume 97 fL (80-100); Monocytes # (Auto) 0.7 Thou/mm3 (0.0-0.8); Monocytes % (Auto) 10 % (0-12); Neutrophils # (Auto) 3.5 Thou/mm3 (1.8-7.7); Neutrophils % (Auto) 55 % (37-80); Nucleated Red Blood Cell # 0.00 Thou/mm3 (0.00-0.00); Nucleated Red Blood Cell % 0 /100 WBC (0); Platelet Count 194 Thou/mm3 (140-440); RDW Standard Deviation 44.8 fL (35.1-43.9); Red Blood Count 5.15 Miln/mm3 (4.50-5.90); White Blood Count 6.5 Thou/mm3 (3.8-10.6)
[2024-12-27 10:37] LABS: Glucose Estimated Average 97 mg/dL (80-131); Hemoglobin A1C 5.0 % Hgb (4.8-6.0)
== END | disposition home or self-care (01) ==
LOC: COPL 07:08
PROVIDERS: PCP Internal Medicine; Referring Provider Internal Medicine; Visit Provider Internal Medicine
DX: Z00.00 Encounter for general adult medical examination without abnormal findings (principal); K21.9 Gastro-esophageal reflux disease without esophagitis; R74.01 Elevation of levels of liver transaminase levels; M15.0 Primary generalized (osteo)arthritis; R10.84 Generalized abdominal pain; R35.1 Nocturia
CPT/HCPCS: 36415; 80053; 80061; 83036; 84153; 84443; 85025; G0103

== ENCOUNTER → 2024-12-27 | Outpatient (CLI) | payer BC, SELFPAY ==
--- NOTE | 2024-12-27 14:30 | XR_ITS ---
Examination: CT abdomen and pelvis without contrast. Coronal 3-D reconstructions. Sagittal 2-D reconstructions. Date and time of exam:December 27, 2024 1406 hours COMPARISON: April 05, 2024 INDICATIONS: Left lower quadrant abdominal pain beginning 3 months ago CTDI: vol (mGy): 6.75 DLP: (mGycm): 399 Technique: Axial images of the abdomen have been obtained, 3 mm slice thickness Intravenous contrast material has not been administered. Low dose protocols were performed. One or more of the following dose reduction techniques were used; automated exposure control, adjustment of the mA and/or KV according to patient size, use of iterative reconstruction technique. Findings: Stable probable liver cysts No gallstones Spleen not enlarged No pancreatic or adrenal mass Mild dilatation of the left renal calyces, no renal calculi Aorta normal size No bowel obstruction No pericecal inflammatory change Colonic diverticulosis Axial image 159 suspicious for early mild acute diverticulitis distal descending colon No peridiverticular abscess Contracted urinary bladder with significant wall thickening up to 13 mm IMPRESSION: Minimal diverticulitis involving distal descending colon Abnormal thickening of urinary bladder wall, consider urinary bladder wall thickening follow-up
== END | disposition home or self-care (01) ==
PROVIDERS: PCP Internal Medicine; Referring Provider Internal Medicine; Visit Provider Internal Medicine
DX: K57.92 Diverticulitis of intestine, part unspecified, without perforation or abscess without bleeding (principal); N32.89 Other specified disorders of bladder
CPT/HCPCS: 74176

== ENCOUNTER → 2025-03-24 | Outpatient (CLI) | payer BC, SELFPAY ==
--- NOTE | 2025-03-24 08:18 | XR_ITS ---
Examination: Foot, right, 3 views Technique: AP, oblique, lateral views foot, 3 views Date and time of exam: March 24, 2025, 0837 hours INDICATIONS: Bunion deformity right foot 5 years with pain FINDINGS: Prominent hallux valgus bunion deformity Advanced osteoarthritis first metatarsophalangeal joint Prominent osteopenia No acute fracture No cortical bone destruction IMPRESSION: Prominent hallux valgus bunion deformity with advanced osteoarthritis first metatarsophalangeal joint
== END | disposition home or self-care (01) ==
PROVIDERS: PCP Internal Medicine; Referring Provider Internal Medicine; Visit Provider Internal Medicine
DX: M20.11 Hallux valgus (acquired), right foot (principal); M21.611 Bunion of right foot; M19.071 Primary osteoarthritis, right ankle and foot
CPT/HCPCS: 73630